=== PATIENT | male | born 1985 | race Caucasian/White ===

== ENCOUNTER 2021-05-16 09:11 | Emergency (ER) | payer OTHER, SELFPAY ==
[2021-05-16 09:24] VITALS: BP 142/67; PULSE 108; RESP 16; TEMP 38.4; O2SAT 97
--- NOTE | 2021-05-16 09:44 | ED.URI ---
HPI - URI/Sore Throat General Chief Complaint: Upper Respiratory Infection Stated Complaint: body aches/macias Time Seen by Provider: 05/16/21 09:44 Source: patient Mode of arrival: ambulatory Limitations: no limitations History of Present Illness HPI Narrative: Jose Gómez is a 35 yo male with no PMH who comes to [facility] with a fever and high heart rate not feeling well since last night-was feeling fine and suddenly started feeling poorly he has had a fever high heart rate and lethargy since last night; very little cough, has body aches Has not had a COVID-vaccine flu vaccine Related Data Allergies Allergy/AdvReac Type Severity Reaction Status Date / Time No Known Allergies Allergy Mild Verified 05/16/21 09:31 Review of Systems Review of Systems: CONSTITUTIONAL: Denies fever, chills, sweats. EYES: Denies visual changes, redness, discharge. ENT: Denies rhinorrhea, congestion, sore throat, otalgia. CARDIOVASCULAR: Denies chest pain, palpitations, edema. RESPIRATORY: Denies dyspnea, wheezing, cough GASTROINTESTINAL: Denies abdominal pain, nausea, vomiting, diarrhea. GENITOURINARY: Denies dysuria, hematuria, abnormal discharge SKIN: Denies rash or itching. NEUROLOGIC: Denies numbness, or focal weakness. PSYCHIATRIC: Denies anxiety or depression. Body aches, fever PMFSH Past Medical History Medical History No acute medical problems Social History Social History (Updated 05/16/21 @ 09:52 by Padmini Bell CNP) Smoking status: Current every day smoker Tobacco type: e-cigarettes/vaping Alcohol intake: current Comments At time of signature, I agree with nursing past medical, surgical, social and family history. There is no relevant family history pertinent to the presenting complaint. Exam Narrative: GENERAL: This is a well-nourished, well-developed patient, in mild distress. He is febrile HEAD: normocephalic, atraumatic. EYES: Sclera clear/white. Vision is grossly intact. EARS: External ears normal, auditory canals clear and with drainage, TMs normal without perforation. Hearing grossly intact. NOSE: External nose normal without nasal discharge, nares without redness, has rhinorrhea. THROAT: Mucous membranes moist, posterior pharynx erythema NECK: Neck supple, non-tender CARDIOVASCULAR: Tachycardic rate and rhythm without murmurs, gallops, or rubs. RESPIRATORY: Clear to auscultation. Breath sounds equal bilaterally. No wheezes, rales, or rhonchi. GASTROINTESTINAL: Abdomen soft, non-tender, SKIN: warm, intact with no suspicious lesions or rash, good texture and turgor. NEURO: awake, alert, and oriented to person, place and time. There were no obvious focal neurologic abnormalities. Steady gait EXTREMITIES: Normal range of motion. BACK: Nontender without deformity Course Course Emergency Course: Patient comes here feeling poorly is febrile and tachycardic after developing body aches Flu swab done- negative Covid - positive Medications to treat the symptoms-Mucinex, Tessalon Perles, take ibuprofen or Tylenol for fever Level of Care: Express Care Visit Vital Signs Vital signs: Vital Signs Temperature 101.2 F H 05/16/21 09:24 Pulse Rate 108 H 05/16/21 09:24 Respiratory Rate 16 05/16/21 09:24 Blood Pressure 142/67 H 05/16/21 09:24 Pulse Oximetry 97 05/16/21 09:24 Temperature 101.2 F H 05/16/21 09:24 Pulse Rate 108 H 05/16/21 09:24 Respiratory Rate 16 05/16/21 09:24 Blood Pressure 142/67 H 05/16/21 09:24 Pulse Oximetry 97 05/16/21 09:24 MDM - URI/Sore Throat Differential Diagnosis Differential diagnosis: Likely upper respiratory infection, sinusitis, viral infection, influenza, pharyngitis and other Lab Data Labs: Lab Results 05/16/21 Range/Units 10:00 POC SARS CoV-2 Ag Positive (Negative) Influenza A Screen Negative Reference Range: Negati
== END 2021-05-16 10:26 | disposition home or self-care (01) ==
PROVIDERS: Emergency Provider Nurse Practitioner; PCP Internal Medicine
DX: U07.1 COVID-19 (principal); F17.200 Nicotine dependence, unspecified, uncomplicated
CPT/HCPCS: 87426; 87804; 99213; C9803; G0463

== ENCOUNTER 2023-06-13 13:36 | Emergency (ER) | payer OTHER, SELFPAY ==
--- NOTE | ~2023-06-13 | XR_ITS ---
EXAMINATION: XR hand LT min 3V INDICATION: Right hand pain and swelling TECHNIQUE: Three views of the right hand are obtained. COMPARISON: None available FINDINGS: There is palmar soft tissue swelling of the hand. No radiopaque foreign body is identified. The bones and joint spaces are normal. IMPRESSION: 1. Palmar soft tissue swelling of the hand without acute osseous abnormality or radiopaque foreign yvonne dy identified. Reviewed, dictated and finalized at location A. [facility] IMPRESSION: 1. Palmar soft tissue swelling of the hand without acute osseous abnormality or radiopaque foreign body identified.
--- NOTE | 2023-06-13 13:38 | ED.UPPEXIN ---
HPI - Extremity Injury (Upper) General Chief Complaint: Extremity Injury, Upper Stated Complaint: Left Hand Pain Time Seen by Provider: 06/13/23 13:38 Source: patient Mode of arrival: ambulatory Limitations: no limitations History of Present Illness HPI narrative: Jose is a 37-year-old male patient presenting to the clinic today with complaints of left palm/proximal 3rd finger pain. 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 Him in his have both been prodding at the area trying to get something out. He thinks that his may have gotten out as piece of sliver. Was having pain and swelling over the past few days. Took some antibiotics for 2 days and states the swelling improved however he is out of the antibiotic. Related Data Home Medications Medication Instructions Recorded Confirmed dextroamphetamine-amphetamine 30 30 PO BID 06/13/23 mg tablet Allergies Allergy/AdvReac Type Severity Reaction Status Date / Time No Known Allergies Allergy Mild Verified 06/13/23 13:54 Review of Systems Review of Systems: Pertinent positives per HPI. Patient denies any fever, chills, rash, headache, visual changes, dizziness, cough, shortness of breath, chest pain, palpitations, nausea, vomiting, diarrhea, constipation, abdominal pain, or any urinary issues. [facility] Past Medical History Medical History No acute medical problems Social History Social History Smoking status: Current every day smoker Tobacco type: e-cigarettes/vaping Alcohol intake: current Comments At the time of my signature, I reviewed and agree with the nursing past medical, surgical, social, and family history. There is no relevant family history pertinent to the patient complaint. Exam Narrative: General: Well-developed, well nourished, in no apparent distress Head: Normocephalic, atraumatic. Cardio: Regular rate and rhythm, s1 and s2 normal, no murmur appreciated. Resp: Clear to auscultation bilaterally, no rhonchi, rales, wheezing or rubs. Integumentary: [place], warm, and dry, intact without lesion, redness and swelling noted to the base of the left 3rd finger/palm with swelling into the finger. Mild tender to palpation with mild erythema Course Course Emergency Course: Portions of this record may have been created with voice recognition software. Level of Care: Express Care Visit Vital Signs Vital signs: Vital signs reviewed MDM - Extremity Injury (Upper) MDM Narrative Medical decision making narrative: At the time of visit patient is resting comfortably on the exam table. Patient appears to be nontoxic. Diagnostics: No obvious radiopaque foreign body in the left palm/finger Plan: I suspect patient has soft tissue swelling possible infection. Prescription for clindamycin was sent to the pharmacy. Supportive measures were discussed with the patient and they voiced understanding discharge instructions and agrees to treatment plan. Return precautions reviewed Differential Diagnosis Differential diagnosis: Likely other (Skin infection, cellulitis, foreign body in soft tissue, inflammation) Imaging Data Radiologist's impression: ITS Impressions Hand X-Ray 06/13/23 14:29 IMPRESSION: 1. Palmar soft tissue swelling of the hand without acute osseous abnormality or radiopaque foreign body identified. Discharge Plan Discharge Clinical Impression: Localized swelling of finger of left hand, Callus of palm of hand Patient Disposition: Home, Self-Care Condition: Stable Instructions: Antibiotic Form Additional Instructions: No obvious radiopaque foreign body seen in the palm of the left hand Take clindamycin as prescribed May take Tylenol/Motrin as needed for pain or fever Follow-up with your primary care provider in 1 week
[2023-06-13 13:47] VITALS: BP 189/108; PULSE 67; RESP 18; TEMP 36.8; O2SAT 97
== END 2023-06-13 14:32 | disposition home or self-care (01) ==
PROVIDERS: Emergency Provider Nurse Practitioner Family
DX: R22.32 Localized swelling, mass and lump, left upper limb (principal); L84 Corns and callosities; F17.290 Nicotine dependence, other tobacco product, uncomplicated
CPT/HCPCS: 73130; 99213; G0463